=== PATIENT | female | born 1965 | race Caucasian/White ===

== ENCOUNTER → 2016-07-18 | Day surgery (SDC) | payer OTHER ==
[2016-07-18 08:06] LABS: HCT 42.8 % (37.0-47.0); HGB 14.5 g/dl (12.5-16.0); MCH 29.9 pg (25.0-31.0); MCHC 33.9 g/dL (32.0-36.0); MCV 88.2 fL (78.0-100.0); MPV 10.6 fL (6.0-9.5); RBC 4.85 M/uL (4.20-5.40); RDW 12.8 % (11.5-14.0)
== END | disposition home or self-care (01) ==
LOC: FAS 06-27 08:00
PROVIDERS: Surgery
DX: Z12.11 Encounter for screening for malignant neoplasm of colon (principal); E78.00 Pure hypercholesterolemia, unspecified; E78.5 Hyperlipidemia, unspecified; Z90.49 Acquired absence of other specified parts of digestive tract; M19.90 Unspecified osteoarthritis, unspecified site; Z98.890 Other specified postprocedural states; Z98.51 Tubal ligation status; Z81.8 Family history of other mental and behavioral disorders; Z80.52 Family history of malignant neoplasm of bladder; Z83.3 Family history of diabetes mellitus; Z82.5 Family history of asthma and other chronic lower respiratory diseases; Z82.49 Family history of ischemic heart disease and other diseases of the circulatory system; Z80.8 Family history of malignant neoplasm of other organs or systems; Z80.0 Family history of malignant neoplasm of digestive organs; Z79.899 Other long term (current) drug therapy
CPT/HCPCS: 36415; 84703; J2704

== ENCOUNTER 2021-10-30 15:29 | Emergency (ER) | payer OTHER ==
[~2021-10-30 15:29] MED LIST: CYCLOBENZAPRINE10 MG PO; MEDROL 4MG DOSEP4 MG PO
[2021-10-30] MEDS ORDERED: NORCO 5-325 TA1 EACH PO (18:11)
== END 2021-10-30 18:21 | disposition home or self-care (01) ==
LOC: FER 15:29
DX: S42.251A Displaced fracture of greater tuberosity of right humerus, initial encounter for closed fracture (principal); W01.0XXA Fall on same level from slipping, tripping and stumbling without subsequent striking against object, initial encounter; Y92.009 Unspecified place in unspecified non-institutional (private) residence as the place of occurrence of the external cause
CPT/HCPCS: 73030